=== PATIENT | female | born 1985 | race Caucasian/White ===

== ENCOUNTER 2022-03-10 03:01 | Emergency (ER) | payer OTHER ==
[2022-03-10] MEDS ORDERED: Lidocaine 1% with EPINEPHrine 1:100,000 50 ML MDV INFILT STA (03:08)
[2022-03-10] MEDS ORDERED: Bacitracin Oint 1 GM U/D Packet TOP ONE (03:08)
[2022-03-10 03:26] LABS: ESTIMATED GFR > 60 (>60)
== END 2022-03-10 05:41 | disposition home or self-care (01) ==
LOC: EDBD 03:01 → MERGE 03:01 → JP.ED 03:01
DX: S06.9X9A Unspecified intracranial injury with loss of consciousness of unspecified duration, initial encounter (principal); S00.81XA Abrasion of other part of head, initial encounter; F10.129 Alcohol abuse with intoxication, unspecified; Y90.8 Blood alcohol level of 240 mg/100 ml or more; W18.09XA Striking against other object with subsequent fall, initial encounter
CPT/HCPCS: 12011; 36415; 70450; 72125; 80053; 80307; 85025; 99283; 99284-25

== ENCOUNTER 2022-05-07 07:02 | Day surgery (SDC) | payer OTHER ==
[2022-05-07] MEDS ORDERED: Midazolam 1 MG/ML 2 ML SDV ONE (07:11)
[2022-05-07] MEDS ORDERED: fentaNYL 100 MCG/2 ML SDV ONE (07:11)
[2022-05-07] MEDS ORDERED: Propofol 200 MG/20 ML SDV ONE ×2 (07:11→08:42)
[2022-05-07] MEDS ORDERED: Dextrose 5%-Lactated Ringers 1,000 ML IV SCH (08:00)
[2022-05-07] MEDS ORDERED: Lactated Ringers 1,000 ML IV SCH (08:05)
== END 2022-05-07 10:15 | disposition home or self-care (01) ==
LOC: JP.SDS 07:02
PROVIDERS: ATTEND Hospitalist
DX: Z12.11 Encounter for screening for malignant neoplasm of colon (principal); F90.9 Attention-deficit hyperactivity disorder, unspecified type; F41.9 Anxiety disorder, unspecified; K63.89 Other specified diseases of intestine; Z79.899 Other long term (current) drug therapy; Z86.010 Personal history of colon polyps
CPT/HCPCS: 45378; J2250; J2704; J3010; J7120